=== PATIENT | female | born 1990 | race Caucasian/White ===

== ENCOUNTER 2023-07-26 19:21 | Emergency (ER) | payer MEDICAID, SELFPAY ==
[2023-07-26] VITALS (15 sets, daily range): BP systolic 124–136; BP diastolic 83–91; PULSE 77–103; RESP 11–23; TEMP 37; O2SAT 100; BMI 24.1
--- NOTE | 2023-07-26 19:38 | ECG_ITS ---
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
--- NOTE | 2023-07-26 19:39 | CT_ITS ---
The [address] [address] Patient Name: ROLAND ADAM MRN: [id number] date: 1990 Sex: F Assigned Patient Location: ED.MAIN Current Patient Location: Accession/Order Number: [id number] Exam Date: 07/26/2023 20:33 Report Date: 07/26/2023 21:00 At the request of: STACEY DUNAWAY Procedure: CT head/brain wo con CT HEAD WITHOUT CONTRAST. INDICATION: Head injury. COMPARISON: None available for comparison TECHNIQUE: Axial CT head images from the skull base to the vertex without IV contrast were acquired. Coronal and sagittal reformats were also obtained. FINDINGS: EXTRA-AXIAL SPACE: Age-appropriate ventricles. No acute extra-axial collection. No extra-axial mass. No midline shift. CEREBRUM: No focal abnormality. No CT evidence of acute large territorial cortical infarct, hemorrhage or mass effect. CEREBELLUM: No focal abnormality. No CT evidence of acute infarct, hemorrhage or mass effect. BRAINSTEM: No focal abnormality. No CT evidence of acute infarct, hemorrhage or mass effect. EXTRACRANIAL STRUCTURES. The paranasal sinuses are clear. Mastoid air cells are clear. Orbits are unremarkable. No discrete pituitary mass. Intact calvarium. CT/CT head/brain wo con IMPRESSION: No acute intracranial abnormality. Electronically authenticated by: KELLY OLIVEIRA Date: 07/26/2023 21:00
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
[2023-07-26 20:14] LABS: Basophils Absolute Auto 0.1 10^3/uL (0.0-0.1); Basophils Percent Auto 0.6 % (0.2-2.0); Eosinophils Absolute Auto 0.1 10^3/uL (0.0-0.7); Eosinophils Percent Auto 0.6 % (0.9-7.0); Hematocrit 38.1 % (36.0-48.0); Hemoglobin 12.6 g/dL (12.0-16.0); Immature Granulocytes Abs Auto 0.04 10^3/uL (0.00-0.03); Immature Granulocytes Pct Auto 0.4 % (0.0-0.5); Lymphocytes Absolute Auto 2.3 10^3/uL (1.2-3.8); Lymphocytes Percent Auto 25.2 % (20.5-60.0); Mean Corpuscular HGB Conc 33.1 g/dL (29.9-35.2); Mean Corpuscular Hemoglobin 29.4 pg (26.7-34.0); Mean Corpuscular Volume 88.8 fL (81.0-99.0); Monocytes Absolute Auto 0.7 10^3/uL (0.3-0.8); Monocytes Percent Auto 7.9 % (1.7-12.0); Neutrophils Absolute Auto 5.9 10^3/uL (1.4-6.5); Neutrophils Percent Auto 65.3 % (43.0-75.0); Platelet Count 313 10^3/uL (150-450); Red Blood Count 4.29 10^6/uL (4.20-5.40)
[2023-07-26 20:27] LABS: HCG Qualitative NEGATIVE (NEGATIVE)
[2023-07-26 20:32] LABS: Anion Gap 5.9; BUN Creatinine Ratio 16.7; Calcium 8.2 mg/dL (8.5-10.1); Carbon Dioxide 29.4 mmol/L (21.0-32.0); Chloride 102 mmol/L (98-107); Estimated GFR (African America >60 (>=60); Estimated GFR (Non-African Ame >60 (>=60); Glucose 117 mg/dL (74-106); Potassium 3.3 mmol/L (3.5-5.1); Sodium 134 mmol/L (136-145); Troponin I High Sensitivity 20.5 pg/mL (4.0-51.3)
[2023-07-26] MEDS: POTASSIUM CHLORIDE 10 MEQ ER TABLET 40 MEQ PO (21:14)
== END 2023-07-26 21:33 | disposition home or self-care (01) ==
PROVIDERS: Emergency Provider Student in an Organized Health Care Education/Training Program; PCP Family Medicine
DX: R55 Syncope and collapse (principal); Z79.899 Other long term (current) drug therapy; F17.210 Nicotine dependence, cigarettes, uncomplicated
CPT/HCPCS: 36415; 70450; 80048; 84484; 84703; 85025; 93005; 99285